=== PATIENT | female | born 1975 | race African-American/Black ===

== ENCOUNTER 2016-10-08 13:41 | Emergency (ER) | payer OTHER ==
[~2016-10-08] VITALS: Ht 167.6 cm; Wt 82.3 kg
[~2016-10-08 13:41] MED LIST: GUAIFENESIN WI120 ML PO; PREDNISONE10 M1 PO
[2016-10-08] MEDS ORDERED: LATUDA20 MG PO (14:00)
[2016-10-08] MEDS ORDERED: THORAZINE50 MG PO (14:02)
[2016-10-08] MEDS ORDERED: PAXIL30 MG PO (14:02)
[2016-10-08] MEDS ORDERED: NAPROXEN500 MG PO (14:23)
[2016-10-08] MEDS ORDERED: FLEXERIL10 MG PO (14:23)
[2016-10-08 14:32] VITALS: BP 157/94
== END 2016-10-08 14:38 | disposition home or self-care (01) ==
LOC: EME 13:41
DX: S16.1XXA Strain of muscle, fascia and tendon at neck level, initial encounter (principal); F17.200 Nicotine dependence, unspecified, uncomplicated
CPT/HCPCS: 99281; 99284